=== PATIENT | female | born 1940 | race Caucasian/White ===

== ENCOUNTER 2020-04-30 16:22 | Inpatient (IN) | payer BC ==
[2020-04-29] MEDS: ATORVASTATIN 10 MG TABLET PO SCH (21:00)
[~2020-04-30] VITALS: Ht 170.2 cm; Wt 112.0 kg
[~2020-04-30 16:22] MED LIST: ASCO-340 PO; ASPI-618 PO; Acetaminophen PO; Blood Sugar Diagnostic VI; CLOP75TA15 PO; CLOT15CR36 TOP; DEXT50DI8 IV; Docusate Sodium PO; FAMO20TA8 PO; FLUT1DIS28 IH; FLUT9.9S EA NOSTRIL; FURO-151 PO; HYDR-3326 PO; INSU100I19 SQ; INSU100V28 SQ; LACT1CAP57 PO; LEVO500T2 PO; LINE600T12 PO; LISI-603 PO; LORA0.5T PO; MAGN400O6 PO; MENT71OI TOP; MINE454C11 TOP; MULT-594 PO; Metoprolol Tartrate PO; POTA10CA43 PO; SPIR25TA6 PO; WARF4TAB41 PO; Zolpidem Tartrate PO; [UNRECOGNIZED DRUG - CODE] PO
--- NOTE | 2020-04-30 16:30 | NUR ---
Dr. Meier at bedside for MSE
[2020-04-30 17:03] LABS: BASOPHILS # (AUTO) 0.1 K/uL (0.0-8.0); BASOPHILS % (AUTO) 1.2 % (0.0-2.0); EOSINOPHILS # (AUTO) 0.1 K/uL (0.0-0.7); EOSINOPHILS % (AUTO) 1.6 % (0.0-7.0); HEMATOCRIT 36.6 % (31.2-41.9); HEMOGLOBIN 12.1 g/dL (10.9-14.3); LYMPHOCYTES # (AUTO) 0.9 K/uL (20.0-40.0); LYMPHOCYTES % (AUTO) 10.9 % (20.5-51.5); MEAN CORPUSCULAR HEMOGLOBIN 29.3 uug (24.7-32.8); MEAN CORPUSCULAR HGB CONC 33 g/dL (32.3-35.6); MEAN CORPUSCULAR VOLUME 88.6 fL (75.5-95.3); MONOCYTES # (AUTO) 0.6 K/uL (2.0-10.0); MONOCYTES % (AUTO) 7.5 % (0.0-11.0); NEUTROPHILS # (AUTO) 6.6 K/uL (1.8-8.9); NEUTROPHILS % (AUTO) 78.8 % (38.5-71.5); PLATELET COUNT (AUTO) 278 K/uL (179-408); RED BLOOD CELL COUNT(AUTO) 4.14 MIL/uL (3.63-4.92); WHITE BLOOD COUNT (AUTO) 8.4 K/uL (3.8-11.8)
[2020-04-30 17:10] LABS: CARBON DIOXIDE 30 mmol/L (21-32); CHLORIDE 103 mmol/L (98-107); CREATININE 1.4 mg/dL (0.6-1.3); GLUCOSE 216 mg/dL (74-106); POTASSIUM 3.7 mmol/L (3.5-5.1); UREA NITROGEN, BLOOD 25 mg/dL (7-18)
[2020-04-30 17:16] LABS: ALANINE AMINOTRANSFERASE 19 U/L (14-59); ALKALINE PHOSPHATASE 76 U/L (50-136); ASPARTATE AMINOTRANSFERASE 22 U/L (15-37); BILIRUBIN,DIRECT 0.2 mg/dL (0.0-0.2); BILIRUBIN,TOTAL 0.5 mg/dL (0.2-1.0); TOTAL PROTEIN, SERUM 7.3 g/dL (6.4-8.2)
[2020-04-30] MEDS ORDERED: ASPIRIN 81 MG TAB.CHEW ONE (17:41)
--- NOTE | 2020-04-30 17:43 | NUR ---
US AT BEDSIDE
[2020-04-30] MEDS ORDERED: ASPIRIN 81 MG TAB.CHEW PO ONE (17:45)
[2020-04-30] MEDS ORDERED: CLINDAMYCIN PHOSPHATE IV 900 MG in IV DEXTROSE 5% 100 ML IV ONE (18:15)
[2020-04-30] MEDS ORDERED: AZTREONAM 1 G in IV NORMAL SALINE 50 ML IV ONE (18:15)
[2020-04-30] MEDS ORDERED: AZTREONAM 1 G VIAL ONE (18:17)
[2020-04-30] MEDS ORDERED: CLINDAMYCIN 900MG/D5W 100ML IVPB **ER PYXIS ONLY IJ ONE (18:17)
[2020-04-30] MEDS ORDERED: NITR0.4T48 SL (18:27)
[2020-04-30] MEDS ORDERED: LEVO150T8 PO (18:27)
[2020-04-30] MEDS ORDERED: GLIM2TAB31 PO (18:27)
[2020-04-30] MEDS ORDERED: VALS320T2 PO (18:27)
[2020-04-30] MEDS ORDERED: WARF-68 PO ×2 (18:27)
[2020-04-30] MEDS ORDERED: ATOR10TA PO (18:27)
[2020-04-30] MEDS ORDERED: PANT40TA4 PO (18:27)
[2020-04-30] MEDS ORDERED: HYDR-4384 PO (18:27)
[2020-04-30] MEDS ORDERED: WARF-58 PO (18:27)
[2020-04-30] MEDS ORDERED: CLOP75TA15 PO (18:27)
[2020-04-30] MEDS ORDERED: FURO40TA5 PO (18:27)
[2020-04-30] MEDS ORDERED: CHLO25TA2 PO (18:27)
[2020-04-30] MEDS ORDERED: IV NORMAL SALINE 500 ML BAG IV ONE (18:30)
[2020-04-30] MEDS ORDERED: NITROGLYCERIN 0.4 MG/TAB BOTTLE SL PRN (20:00)
[2020-04-30] MEDS ORDERED: MORPHINE SULFATE 2 MG/1 ML DISP.SYRIN IV PRN (20:00)
[2020-04-30] MEDS ORDERED: ENALAPRILAT DIHYDRATE 1.25 MG/1 ML VIAL IV PRN (20:00)
[2020-04-30] MEDS ORDERED: INSULIN REGULAR, HUMAN 300 UNIT/3 ML VIAL SQ PRN (20:15)
[2020-04-30] MEDS ORDERED: DEXTROSE 50% 50 ML DISP.SYRIN IV PRN (20:15)
--- NOTE | 2020-04-30 21:35 | NUR ---
Admitted a 79 years old female with Diagnosis of Cellulitis and ACS. Patient AAOx4. In no acute distress. Denies any SOB. Some pain on right leg during movement but tolerable per patient. A. fib on tele at 57.min. IV site on right wrist area intact and patent. Both LE with 3+ pitting edema. Right leg swollen and reddened. Needs assessed and attended to. Routine admission care done. Plan of care initiated. Safety measure initiated and call argueta within reached.
[2020-04-30] MEDS ORDERED: TEMAZEPAM 7.5 MG CAPSULE PO PRN (21:45)
[2020-04-30 21:50] VITALS: BP 133/57
[2020-04-30] MEDS: DOCUSATE SODIUM 100 MG CAPSULE PO SCH (22:00)
[2020-04-30] MEDS: ACIDOPHILUS/BULGARICUS CHEW TAB PO SCH (22:01)
[2020-04-30] MEDS: BLOOD SUGAR DIAGNOSTIC 1 EACH STRIP VI SCH (22:17)
[2020-05-01] VITALS: BP 125/58
[2020-05-01] MEDS: ACETAMINOPHEN 325 MG TABLET PO PRN ×2 (00:47→09:01)
[2020-05-01] MEDS ORDERED: CLINDAMYCIN PHOSPHATE 600 MG/4 ML VIAL ONE (00:55)
[2020-05-01] MEDS: CLINDAMYCIN PHOSPHATE IV 600 MG in IV DEXTROSE 5% 100 ML IV SCH ×3 (01:26→17:05)
[2020-05-01 04:00] VITALS: BP 132/64
--- NOTE | 2020-05-01 05:53 | NUR ---
Patient AAOx4. In no acute distress. Denies any SOB. Tylenol 650mg PO PRN per order given for complain of pain on right leg and with help. A. fib on tele at 60/min. IV site on right wrist area intact and patent. No adverse reaction noted from IV ABX. Needs attended to and met. Safety measure maintained and call argueta within reached.
[2020-05-01] MEDS: PANTOPRAZOLE SODIUM 40 MG TABLET.DR PO SCH (06:07)
[2020-05-01] MEDS: BLOOD SUGAR DIAGNOSTIC 1 EACH STRIP VI SCH ×4 (06:33→20:23)
[2020-05-01 06:46] LABS: BASOPHILS % (AUTO) 0.3 % (0.0-2.0); EOSINOPHILS # (AUTO) 0.2 K/uL (0.0-0.7); EOSINOPHILS % (AUTO) 2.6 % (0.0-7.0); HEMATOCRIT 32.2 % (31.2-41.9); HEMOGLOBIN 10.9 g/dL (10.9-14.3); LYMPHOCYTES # (AUTO) 1.4 K/uL (20.0-40.0); LYMPHOCYTES % (AUTO) 18.5 % (20.5-51.5); MEAN CORPUSCULAR HEMOGLOBIN 29.7 uug (24.7-32.8); MEAN CORPUSCULAR HGB CONC 34 g/dL (32.3-35.6); MEAN CORPUSCULAR VOLUME 88.2 fL (75.5-95.3); MONOCYTES # (AUTO) 0.8 K/uL (2.0-10.0); NEUTROPHILS % (AUTO) 67.6 % (38.5-71.5); PLATELET COUNT (AUTO) 235 K/uL (179-408); RED BLOOD CELL COUNT(AUTO) 3.65 MIL/uL (3.63-4.92); WHITE BLOOD COUNT (AUTO) 7.3 K/uL (3.8-11.8)
[2020-05-01] MEDS ORDERED: LEVOTHYROXINE SODIUM 150 MCG TABLET PO SCH (07:00)
[2020-05-01 07:01] LABS: BILIRUBIN,TOTAL 0.4 mg/dL (0.2-1.0); CREATININE 1.3 mg/dL (0.6-1.3); MAGNESIUM 1.9 mg/dL (1.8-2.4); PHOSPHOROUS 3.9 mg/dL (2.5-4.9); POTASSIUM 3.9 mmol/L (3.5-5.1); TOTAL PROTEIN, SERUM 6.5 g/dL (6.4-8.2)
[2020-05-01 07:11] LABS: THYROID STIMULATING HORMONE 0.152 mIU/mL (0.358-3.740)
[2020-05-01] MEDS: GLIMEPIRIDE 2 MG TABLET PO SCH (08:44)
[2020-05-01] MEDS: FUROSEMIDE 40 MG TABLET PO SCH (08:44)
[2020-05-01] MEDS: ACIDOPHILUS/BULGARICUS CHEW TAB PO SCH ×2 (08:44→20:16)
[2020-05-01] MEDS: CLOPIDOGREL 75 MG TABLET PO SCH (08:44)
[2020-05-01] MEDS ORDERED: METOPROLOL SUCCINATE XL 25 MG TAB.SR.24H PO SCH (09:00)
[2020-05-01 12:03] VITALS: BP 126/34
[2020-05-01 12:19] LABS: *BILIRUBIN,URIN NEGATIVE (NEGATIVE); *BLOOD, URINE NEGATIVE (NEGATIVE); *CLARITY,URINE SLIGHTLY CLOUDY (CLEAR); *COLOR,URINE YELLOW (YELLOW); *KETONES,URINE NEGATIVE (NEGATIVE); *UROBILINOGEN,URINE 0.2 E.U./dl (NORMAL); LEUKOCYTE ESTERASE ,URINE 1+ (NEGATIVE); NITRITE, URINE NEGATIVE (NEGATIVE); UGLUCOSE NEGATIVE (NEGATIVE)
[2020-05-01 12:30] LABS: BACTERIA,URINE FEW /HPF (NONE SEEN); SQUAMOUS EPITHELIAL CELL,UR MODERATE /HPF (NONE SEEN)
[2020-05-01 12:31] LABS: MUCUS,URINE MODERATE /LPF (0-FEW)
--- NOTE | 2020-05-01 12:45 | NUR ---
WOUND CARE CONSULT: PT SEEN FOR SKIN ASSESSMENT OF LOWER EXTREMITIES UPON REQUEST OF [employer]. PT NOTED TO HAVE REDNESS TO LOWER LEGS WITH SCARRING TO BILATERAL LATERAL LOWER LEGS AND RT PLANTAR FOOT CALLUS, PRESENT ON ADMISSION. SKIN IS VERY DRY. RECOMMENDATIONS MADE FOR SKIN PROTECTION. DISCUSSED WITH NURSING STAFF. PT STATES WILL SEE HER OWN DPM AFTER DISCHARGE. WILL SEE PRN.
[2020-05-01 16:24] VITALS: BP 110/51
[2020-05-01] MEDS: MINERAL OIL/PETROLATUM,WHITE 57 GM TUBE TOP SCH (16:46)
[2020-05-01] MEDS ORDERED: WARFARIN SODIUM 2 MG TABLET PO SCH (17:00)
--- NOTE | 2020-05-01 19:00 | NUR ---
Patient has been stable throughout the shift. On RA with no distress or SOB complaints. Complained of BLE pain upon movement, Tylenol PRN as ordered given. Wound care nurse visited patient, took pictures of legs and sole of foot. Dr. Ardon also came to check on patient and had a long conversation with patient for her plan of care. Able to ambulate to bathroom with standby assist. Bed locked in lowest position with siderails 2x up. Will endorse to next shift
--- NOTE | 2020-05-01 19:20 | NUR ---
Patient AAOx4. In no acute distress. Denies any pain at this time. No SOB. A. fib on tele at 59/min. IV site on left FA intact and patent. Needs assessed and attended to. Safety measure initiated and call argueta within reached.
[2020-05-01 20:01] VITALS: BP 115/49
[2020-05-01] MEDS: ATORVASTATIN 10 MG TABLET PO SCH (20:16)
[2020-05-01] MEDS: DOCUSATE SODIUM 100 MG CAPSULE PO SCH (20:16)
[2020-05-01] MEDS: CEFAZOLIN 1 G in IV DEXTROSE 5% 50 ML IV SCH (21:18)
[2020-05-02 00:15] VITALS: BP 126/34
[2020-05-02 04:22] VITALS: BP 104/56
[2020-05-02] MEDS: CEFAZOLIN 1 G in IV DEXTROSE 5% 50 ML IV SCH ×3 (05:02→21:39)
[2020-05-02] MEDS: PANTOPRAZOLE SODIUM 40 MG TABLET.DR PO SCH (06:06)
[2020-05-02] MEDS: LEVOTHYROXINE SODIUM 100 MCG TABLET PO SCH (06:07)
--- NOTE | 2020-05-02 06:20 | NUR ---
Patient slept well last night. AOx4. In no acute distress. Denies any pain or SOB. A. fib on tele at 70/min. IV site on left FA intact and patent. No adverse reaction noted from IV ABX. Needs attended to and met. Safety measure maintained and call argueta within reached.
[2020-05-02] MEDS: BLOOD SUGAR DIAGNOSTIC 1 EACH STRIP VI SCH ×2 (06:32→11:42)
[2020-05-02 08:00] VITALS: BP 121/54
[2020-05-02] MEDS: GLIMEPIRIDE 2 MG TABLET PO SCH ×2 (09:00→09:07)
[2020-05-02] MEDS: ACIDOPHILUS/BULGARICUS CHEW TAB PO SCH ×2 (09:07→21:39)
[2020-05-02] MEDS: FUROSEMIDE 40 MG TABLET PO SCH (09:07)
[2020-05-02] MEDS: CLOPIDOGREL 75 MG TABLET PO SCH (09:07)
[2020-05-02] MEDS: MINERAL OIL/PETROLATUM,WHITE 57 GM TUBE TOP SCH (09:21)
[2020-05-02 11:11] VITALS: BP 120/57
[2020-05-02 15:43] VITALS: BP 124/44
[2020-05-02] MEDS ORDERED: WARFARIN SODIUM 5 MG TABLET PO SCH (17:00)
[2020-05-02] MEDS: WARFARIN SODIUM 5 MG TABLET PO SCH (17:23)
[2020-05-02 20:00] VITALS: BP 131/54
[2020-05-02] MEDS: DOCUSATE SODIUM 100 MG CAPSULE PO SCH (21:39)
[2020-05-02] MEDS: ATORVASTATIN 10 MG TABLET PO SCH (21:39)
[2020-05-03] MEDS: ACETAMINOPHEN 325 MG TABLET PO PRN ×2 (01:48→12:06)
[2020-05-03 04:03] VITALS: BP 136/64
[2020-05-03] MEDS: CEFAZOLIN 1 G in IV DEXTROSE 5% 50 ML IV SCH ×3 (05:04→21:04)
[2020-05-03] MEDS: PANTOPRAZOLE SODIUM 40 MG TABLET.DR PO SCH (06:21)
[2020-05-03] MEDS: LEVOTHYROXINE SODIUM 100 MCG TABLET PO SCH (06:29)
[2020-05-03] MEDS: GLIMEPIRIDE 2 MG TABLET PO SCH (08:48)
[2020-05-03] MEDS: MINERAL OIL/PETROLATUM,WHITE 57 GM TUBE TOP SCH (08:48)
[2020-05-03] MEDS: FUROSEMIDE 40 MG TABLET PO SCH (08:48)
[2020-05-03] MEDS: CLOPIDOGREL 75 MG TABLET PO SCH (08:48)
[2020-05-03] MEDS: ACIDOPHILUS/BULGARICUS CHEW TAB PO SCH ×2 (08:48→21:04)
--- NOTE | 2020-05-03 10:30 | NUR ---
took over care from Elisha RN, pt sitting up in w/c, awake alert and oriented, denies of pain at this time, explained plan fo care, verbalized understanding, needs attended, safety measures maintained, call light within reach
[2020-05-03 11:40] VITALS: BP 122/54
--- NOTE | 2020-05-03 12:30 | NUR ---
c/o generalized pains, medicated with Tylenol 650 mg po as ordered.
--- NOTE | 2020-05-03 13:45 | NUR ---
up with PT- see notes
[2020-05-03 15:45] VITALS: BP 112/40
[2020-05-03] MEDS: WARFARIN SODIUM 5 MG TABLET PO SCH (17:29)
--- NOTE | 2020-05-03 18:06 | NUR ---
states was able to take a short nap, dinner served, seen by Dr Contreras, denies of pain at tis time, all needs attended and met, safety measures maintained
[2020-05-03 20:00] VITALS: BP_SYST 131; BP_DIAS 54; BP_DIAS 80
[2020-05-03] MEDS: DOCUSATE SODIUM 100 MG CAPSULE PO SCH (21:04)
[2020-05-03] MEDS: ATORVASTATIN 10 MG TABLET PO SCH (21:04)
[2020-05-04] MEDS: ACETAMINOPHEN 325 MG TABLET PO PRN ×2 (03:40→23:33)
[2020-05-04 04:00] VITALS: BP 153/47
--- NOTE | 2020-05-04 05:47 | NUR ---
No acute events overnight, pt able ambulated with min assist using a walker, c/o of R calf pain, pt medicated for pain with tylenol
[2020-05-04] MEDS: LEVOTHYROXINE SODIUM 100 MCG TABLET PO SCH (06:53)
[2020-05-04] MEDS: CEFAZOLIN 1 G in IV DEXTROSE 5% 50 ML IV SCH ×3 (06:53→21:28)
[2020-05-04] MEDS: PANTOPRAZOLE SODIUM 40 MG TABLET.DR PO SCH (06:53)
[2020-05-04 08:07] LABS: BASOPHILS # (AUTO) 0.1 K/uL (0.0-8.0); BASOPHILS % (AUTO) 0.9 % (0.0-2.0); EOSINOPHILS # (AUTO) 0.3 K/uL (0.0-0.7); EOSINOPHILS % (AUTO) 3.8 % (0.0-7.0); HEMATOCRIT 34.9 % (31.2-41.9); HEMOGLOBIN 11.6 g/dL (10.9-14.3); LYMPHOCYTES # (AUTO) 1.4 K/uL (20.0-40.0); LYMPHOCYTES % (AUTO) 20.8 % (20.5-51.5); MEAN CORPUSCULAR HEMOGLOBIN 29.6 uug (24.7-32.8); MEAN CORPUSCULAR HGB CONC 33 g/dL (32.3-35.6); MONOCYTES # (AUTO) 0.6 K/uL (2.0-10.0); MONOCYTES % (AUTO) 8.9 % (0.0-11.0); NEUTROPHILS # (AUTO) 4.6 K/uL (1.8-8.9); NEUTROPHILS % (AUTO) 65.6 % (38.5-71.5); PLATELET COUNT (AUTO) 292 K/uL (179-408); RED BLOOD CELL COUNT(AUTO) 3.92 MIL/uL (3.63-4.92)
[2020-05-04 08:19] LABS: BILIRUBIN,TOTAL 0.3 mg/dL (0.2-1.0); CREATININE 1.3 mg/dL (0.6-1.3); MAGNESIUM 1.8 mg/dL (1.8-2.4); PHOSPHOROUS 3.3 mg/dL (2.5-4.9); POTASSIUM 3.5 mmol/L (3.5-5.1); TOTAL PROTEIN, SERUM 7.1 g/dL (6.4-8.2)
[2020-05-04] MEDS: ACIDOPHILUS/BULGARICUS CHEW TAB PO SCH ×2 (09:07→20:13)
[2020-05-04] MEDS: GLIMEPIRIDE 2 MG TABLET PO SCH (09:07)
[2020-05-04] MEDS: MINERAL OIL/PETROLATUM,WHITE 57 GM TUBE TOP SCH (09:08)
[2020-05-04] MEDS: FUROSEMIDE 40 MG TABLET PO SCH (09:08)
[2020-05-04] MEDS: CLOPIDOGREL 75 MG TABLET PO SCH (09:08)
[2020-05-04 12:48] VITALS: BP 141/72
[2020-05-04 16:34] VITALS: BP 151/67
[2020-05-04] MEDS: WARFARIN SODIUM 5 MG TABLET PO SCH (17:56)
[2020-05-04 20:12] VITALS: BP 129/52
[2020-05-04] MEDS: ATORVASTATIN 10 MG TABLET PO SCH (20:13)
[2020-05-04] MEDS: DOCUSATE SODIUM 100 MG CAPSULE PO SCH (20:13)
[2020-05-05 04:09] VITALS: BP 132/67
[2020-05-05] MEDS: CEFAZOLIN 1 G in IV DEXTROSE 5% 50 ML IV SCH ×3 (06:05→21:06)
[2020-05-05] MEDS: PANTOPRAZOLE SODIUM 40 MG TABLET.DR PO SCH (06:08)
[2020-05-05] MEDS: LEVOTHYROXINE SODIUM 100 MCG TABLET PO SCH (06:08)
[2020-05-05] MEDS: FUROSEMIDE 40 MG TABLET PO SCH (06:42)
[2020-05-05] MEDS: CLOPIDOGREL 75 MG TABLET PO SCH (08:40)
[2020-05-05] MEDS: GLIMEPIRIDE 2 MG TABLET PO SCH (08:40)
[2020-05-05] MEDS: ACIDOPHILUS/BULGARICUS CHEW TAB PO SCH ×2 (08:40→21:05)
[2020-05-05] MEDS: MINERAL OIL/PETROLATUM,WHITE 57 GM TUBE TOP SCH (08:51)
[2020-05-05 12:00] VITALS: BP 135/62
[2020-05-05 16:42] VITALS: BP 150/42
[2020-05-05] MEDS: WARFARIN SODIUM 5 MG TABLET PO SCH (17:25)
--- NOTE | 2020-05-05 17:31 | NUR ---
Pt received, no acute distress, denies pain, no SOB. Able to make needs known. Pt ambulates steadily with personal walker. Pt received news of the of a close friend, assisted Pt to contact friend with room phone. Pt sitting up in chair for meals. Ice pack applied to right lower leg following ambulation. Call light within reach. All comfort ans safety needs attended to throughout the shift. Will continue to monitor.
--- NOTE | 2020-05-05 19:15 | NUR ---
The patient requested to come back tomorrow morning. She said she is unable to lie down after meal.
--- NOTE | 2020-05-05 19:45 | NUR ---
Received patient awake and alert sitting in chair. Patient shows no signs or symptoms of distress at this time. Bed set to lowest position. Call light within reach. Will continue to monitor patient.
[2020-05-05 20:34] VITALS: BP 125/47
--- NOTE | 2020-05-05 20:45 | NUR ---
Received report from PATRICIA Quispe. Patient awake and alert sitting in chair. Patient denies any acute distress or pain. Patient's vitals are stable. Safety measures in place. Call light within reach. Will continue with the plan of care.
[2020-05-05] MEDS: ATORVASTATIN 10 MG TABLET PO SCH (21:05)
[2020-05-05] MEDS: DOCUSATE SODIUM 100 MG CAPSULE PO SCH (21:06)
[2020-05-06] MEDS: CEFAZOLIN 1 G in IV DEXTROSE 5% 50 ML IV SCH ×3 (05:36→22:49)
[2020-05-06] MEDS: LEVOTHYROXINE SODIUM 100 MCG TABLET PO SCH (06:00)
[2020-05-06] MEDS: PANTOPRAZOLE SODIUM 40 MG TABLET.DR PO SCH (06:01)
[2020-05-06] MEDS: FUROSEMIDE 40 MG TABLET PO SCH ×2 (06:01→06:07)
[2020-05-06 06:13] LABS: BASOPHILS % (AUTO) 0.5 % (0.0-2.0); EOSINOPHILS # (AUTO) 0.2 K/uL (0.0-0.7); HEMATOCRIT 34.5 % (31.2-41.9); HEMOGLOBIN 11.6 g/dL (10.9-14.3); LYMPHOCYTES # (AUTO) 1.2 K/uL (20.0-40.0); LYMPHOCYTES % (AUTO) 17.8 % (20.5-51.5); MEAN CORPUSCULAR HEMOGLOBIN 29.5 uug (24.7-32.8); MEAN CORPUSCULAR HGB CONC 34 g/dL (32.3-35.6); MEAN CORPUSCULAR VOLUME 88.1 fL (75.5-95.3); MONOCYTES # (AUTO) 0.6 K/uL (2.0-10.0); MONOCYTES % (AUTO) 8.6 % (0.0-11.0); NEUTROPHILS # (AUTO) 4.6 K/uL (1.8-8.9); NEUTROPHILS % (AUTO) 70.1 % (38.5-71.5); PLATELET COUNT (AUTO) 293 K/uL (179-408); RED BLOOD CELL COUNT(AUTO) 3.91 MIL/uL (3.63-4.92); WHITE BLOOD COUNT (AUTO) 6.6 K/uL (3.8-11.8)
[2020-05-06 06:25] LABS: CREATININE 1.3 mg/dL (0.6-1.3); MAGNESIUM 1.6 mg/dL (1.8-2.4); PHOSPHOROUS 3.3 mg/dL (2.5-4.9); POTASSIUM 3.3 mmol/L (3.5-5.1)
[2020-05-06 06:34] VITALS: BP 146/59
--- NOTE | 2020-05-06 06:46 | NUR ---
Patient refused lasix med. Per patient, she doesn't want to go all the time. Charge nurse aware.
--- NOTE | 2020-05-06 06:55 | NUR ---
Patient slept intermittently throughout the night. Patient sitting in chair, alert. Patient denies any acute distress or pain. Patient's vitals stable. IV is intact and patent. Comfort care and Needs attended. Safety measures in place. Bed low and locked position. Call light within reach. Will endorse to the oncoming nurse accordingly.
[2020-05-06] MEDS: GLIMEPIRIDE 2 MG TABLET PO SCH (09:20)
[2020-05-06] MEDS: ACIDOPHILUS/BULGARICUS CHEW TAB PO SCH ×2 (09:20→20:22)
[2020-05-06] MEDS: CLOPIDOGREL 75 MG TABLET PO SCH (09:20)
[2020-05-06] MEDS: MINERAL OIL/PETROLATUM,WHITE 57 GM TUBE TOP SCH (09:22)
[2020-05-06] MEDS ORDERED: ALBUTEROL SULFATE 8 GM HFA.AER.AD IH PRN (10:45)
[2020-05-06] MEDS ORDERED: FLUCONAZOLE 100 MG TABLET PO ONE ×2 (10:45→11:30)
[2020-05-06] MEDS ORDERED: ALBUTEROL SULFATE 2.5 MG/3 ML NEBU NEB PRN (11:00)
[2020-05-06] MEDS ORDERED: POTASSIUM CHLORIDE 20 MEQ TAB.PRT.SR PO ONE (11:15)
[2020-05-06] MEDS ORDERED: MAGNESIUM OXIDE 400 MG TABLET PO ONE (11:15)
[2020-05-06 11:58] VITALS: BP 141/66
[2020-05-06 16:24] VITALS: BP_SYST 109; BP_SYST 128; BP_DIAS 40; BP_DIAS 43
[2020-05-06] MEDS: WARFARIN SODIUM 5 MG TABLET PO SCH (17:04)
--- NOTE | 2020-05-06 18:29 | NUR ---
PATIENT CALM COMFORTABLE THROUGH SHIFT WITH NO SIGNS OF DISTRESS;MEDICATION COMPLIANT WITH STABLE VITAL SIGNS.REPORT GIVEN TO ONCOMING NURSE.
--- NOTE | 2020-05-06 20:00 | NUR ---
RECEIVED PATIENT AWAKE, SITTING IN CHAIR AT BEDSIDE. PATIENT IS A/O X4. NO C/O PAIN AT THIS TIME. NO RESP. DISTRESS NOTED. VS WNL. H/L INTACT AND PATENT. CALL LIGHT IN REACH. ALL NEEDS ATTENDED, WILL CONTINUE TO MONITOR AND ASSESS.
[2020-05-06] MEDS: ATORVASTATIN 10 MG TABLET PO SCH (20:22)
[2020-05-06] MEDS: DOCUSATE SODIUM 100 MG CAPSULE PO SCH (20:22)
[2020-05-06 20:36] VITALS: BP 156/57
[2020-05-07] MEDS: ACETAMINOPHEN 325 MG TABLET PO PRN ×2 (04:22→23:32)
[2020-05-07] MEDS: CEFAZOLIN 1 G in IV DEXTROSE 5% 50 ML IV SCH ×3 (06:00→21:45)
[2020-05-07] MEDS: FUROSEMIDE 40 MG TABLET PO SCH (06:16)
[2020-05-07] MEDS: PANTOPRAZOLE SODIUM 40 MG TABLET.DR PO SCH (06:16)
[2020-05-07] MEDS: LEVOTHYROXINE SODIUM 100 MCG TABLET PO SCH (06:16)
[2020-05-07 06:28] LABS: BASOPHILS % (AUTO) 0.6 % (0.0-2.0); EOSINOPHILS # (AUTO) 0.2 K/uL (0.0-0.7); EOSINOPHILS % (AUTO) 3.3 % (0.0-7.0); HEMATOCRIT 32.6 % (31.2-41.9); LYMPHOCYTES % (AUTO) 16.9 % (20.5-51.5); MEAN CORPUSCULAR HEMOGLOBIN 29.9 uug (24.7-32.8); MEAN CORPUSCULAR HGB CONC 34 g/dL (32.3-35.6); MEAN CORPUSCULAR VOLUME 88.8 fL (75.5-95.3); MONOCYTES # (AUTO) 0.5 K/uL (2.0-10.0); MONOCYTES % (AUTO) 9.1 % (0.0-11.0); NEUTROPHILS # (AUTO) 4.2 K/uL (1.8-8.9); NEUTROPHILS % (AUTO) 70.1 % (38.5-71.5); PLATELET COUNT (AUTO) 275 K/uL (179-408); RED BLOOD CELL COUNT(AUTO) 3.67 MIL/uL (3.63-4.92)
[2020-05-07 06:34] VITALS: BP 148/66
[2020-05-07 08:02] LABS: CREATININE 1.2 mg/dL (0.6-1.3); MAGNESIUM 1.9 mg/dL (1.8-2.4); PHOSPHOROUS 2.8 mg/dL (2.5-4.9); POTASSIUM 3.6 mmol/L (3.5-5.1)
[2020-05-07] MEDS: POTASSIUM CHLORIDE 10 MEQ TAB.PRT.SR PO SCH (08:42)
[2020-05-07] MEDS: GLIMEPIRIDE 2 MG TABLET PO SCH (08:42)
[2020-05-07] MEDS: ACIDOPHILUS/BULGARICUS CHEW TAB PO SCH ×2 (08:42→21:45)
[2020-05-07] MEDS: CLOPIDOGREL 75 MG TABLET PO SCH (08:42)
[2020-05-07] MEDS: MINERAL OIL/PETROLATUM,WHITE 57 GM TUBE TOP SCH (08:43)
[2020-05-07 11:30] VITALS: BP 142/48
[2020-05-07 16:00] VITALS: BP 141/53
[2020-05-07] MEDS: WARFARIN SODIUM 5 MG TABLET PO SCH (16:45)
--- NOTE | 2020-05-07 17:15 | NUR ---
PATIENT IS ALERT, ORIENTED X4, NO DISTRESS NOTED, AMBULATORY WITH FWW WITH SUPERVISION, PATIENT CONCERNS ADDRESSED
--- NOTE | 2020-05-07 19:09 | NUR ---
VIVIENNE CHEESE SPECIALIST EXPLAINED TO PATIENT HER RESULTS AND TALKED TO PATIENT IN LENGTH, ANSWERED QUESTIONS, COORDINATE THE CARE. PATIENT IS NEEDY, NEEDS ATTENDED TIMELY, NO DISTRESS NOTED, PATIENT DENIED ANY PAIN DURING SHIFT
[2020-05-07 20:09] VITALS: BP 148/43
[2020-05-07] MEDS: ATORVASTATIN 10 MG TABLET PO SCH ×2 (21:00→21:45)
[2020-05-07] MEDS: MELATONIN 3 MG TABLET PO SCH ×2 (21:45→21:54)
[2020-05-07] MEDS: DOCUSATE SODIUM 100 MG CAPSULE PO SCH (21:45)
--- NOTE | 2020-05-07 21:54 | NUR ---
patient refused her simvastatin at this time despite education Addendum: 05/07/20 at 2204 by HALINA MIKE RN correction: lipitor
[2020-05-08 04:09] VITALS: BP 117/48
--- NOTE | 2020-05-08 05:02 | NUR ---
PATIENT IS AAOX3. V/S STABLE. NO S/S OF ACUTE DISTRESS. WALKED AROUND THE HALLWAY TWICE AT BEGINNING OF SHIFT. C/O OF PAIN AND TYLENOL ADMINISTERED. TOLERATED WELL. SAFETY PRECAUTIONS PROVIDED. MEDICATIONS ADMINISTERED AND 1 REFUSED. WILL CONTINUE TO MONITOR.
[2020-05-08] MEDS: CEFAZOLIN 1 G in IV DEXTROSE 5% 50 ML IV SCH ×2 (05:46→15:00)
[2020-05-08] MEDS: PANTOPRAZOLE SODIUM 40 MG TABLET.DR PO SCH (06:03)
[2020-05-08] MEDS: FUROSEMIDE 40 MG TABLET PO SCH (06:04)
[2020-05-08] MEDS: LEVOTHYROXINE SODIUM 100 MCG TABLET PO SCH (06:04)
[2020-05-08 06:48] LABS: BASOPHILS % (AUTO) 0.7 % (0.0-2.0); CREATININE 1.2 mg/dL (0.6-1.3); EOSINOPHILS # (AUTO) 0.2 K/uL (0.0-0.7); EOSINOPHILS % (AUTO) 3.6 % (0.0-7.0); HEMATOCRIT 31.4 % (31.2-41.9); HEMOGLOBIN 10.6 g/dL (10.9-14.3); LYMPHOCYTES # (AUTO) 1.1 K/uL (20.0-40.0); LYMPHOCYTES % (AUTO) 18.4 % (20.5-51.5); MAGNESIUM 1.8 mg/dL (1.8-2.4); MEAN CORPUSCULAR HEMOGLOBIN 29.9 uug (24.7-32.8); MEAN CORPUSCULAR HGB CONC 34 g/dL (32.3-35.6); MEAN CORPUSCULAR VOLUME 88.4 fL (75.5-95.3); MONOCYTES # (AUTO) 0.6 K/uL (2.0-10.0); MONOCYTES % (AUTO) 10.4 % (0.0-11.0); NEUTROPHILS # (AUTO) 3.8 K/uL (1.8-8.9); NEUTROPHILS % (AUTO) 66.9 % (38.5-71.5); PHOSPHOROUS 3.2 mg/dL (2.5-4.9); PLATELET COUNT (AUTO) 272 K/uL (179-408); POTASSIUM 3.7 mmol/L (3.5-5.1); RED BLOOD CELL COUNT(AUTO) 3.55 MIL/uL (3.63-4.92); WHITE BLOOD COUNT (AUTO) 5.7 K/uL (3.8-11.8)
[2020-05-08 08:00] VITALS: BP 137/43
[2020-05-08] MEDS: GLIMEPIRIDE 2 MG TABLET PO SCH (09:03)
[2020-05-08] MEDS: POTASSIUM CHLORIDE 10 MEQ TAB.PRT.SR PO SCH (09:03)
[2020-05-08] MEDS: ACIDOPHILUS/BULGARICUS CHEW TAB PO SCH (09:03)
[2020-05-08] MEDS: CLOPIDOGREL 75 MG TABLET PO SCH (09:03)
[2020-05-08] MEDS: MINERAL OIL/PETROLATUM,WHITE 57 GM TUBE TOP SCH (09:08)
[2020-05-08] MEDS ORDERED: POTA10CA43 PO (13:02)
[2020-05-08] MEDS ORDERED: LEVO100T10 PO (13:02)
[2020-05-08] MEDS ORDERED: CEPH-570 PO (13:02)
[2020-05-08] MEDS ORDERED: ACID1TAB4 PO (13:02)
[2020-05-08 16:00] VITALS: BP 145/50
[2020-05-08] MEDS: WARFARIN SODIUM 5 MG TABLET PO SCH (16:37)
--- NOTE | 2020-05-08 16:50 | NUR ---
called Neda from [facility], arranged van, around 1800.
--- NOTE | 2020-05-08 17:41 | NUR ---
PATIENT IS BEING DISCHARGED HOME BY [facility], PATIENT IS ALERT, ORIENTED X4, VERBALLY RESPONSIVE, NO SOB,RESP EVEN NONLABORED,SKIN WARM AND DRY TO TOUCH, NO DISTRESS NOTED, DISCHARGE PAPER WORK GIVEN TO PATIENT, INSTRUCTIONS GIVEN, PATIENT VERBALIZED UNDERSTANDING OF IT, PRESCRIPTION GIVEN TO PATIENT, BELONGINGS ACCOUNTED, AND SIGNED, PATIENT OWN MEDICATION FROM PHARMACY GIVEN TO PATIENT, IV REMOVED, ID BAND REMOVED, VOUCHER FOR [facility] GIVEN TO PATIENT, WAITING FOR [facility], PATIENT UNDERSTANDS THE FOLLOW UP WITH HER OWN PRIMARY CARE PHYSICIAN AND WITH VASCULAR DOCTOR, PATIENT HAS THE INFORMATION PROVIDED REGARDING VASCULAR DOCTOR TO FOLLOW UP WITH. Addendum: 05/08/20 at 1852 by ADDIE JERONIMO RN RN PATIENT STATED SHE WOULD LIKE TO EAT DINNER THEN LEAVE. ORDERED [facility] AT 6PM PER PATIENT REQUEST, SPOKE TO ZAHRA FROM [facility]NT[facility]
--- NOTE | 2020-05-08 18:48 | NUR ---
CALLED [facility] AGAIN MULTIPLE TIME, NO RESPONSE, ORDER PLACED AGAIN ONLINE, WAITING FOR [facility] TO PICK P
--- NOTE | 2020-05-08 19:14 | NUR ---
patient discharged home safely transferred to the [facility]
== END 2020-05-09 00:10 | disposition home health service (06) | DRG 871 ==
LOC: ER 16:25 → TELE3 21:24 → MEDSURG3 05-02 09:05
PROVIDERS: ADMIT Internal Medicine; ATTEND Registered Nurse
DX: A41.9 Sepsis, unspecified organism (principal); I21.A1 Myocardial infarction type 2; I50.33 Acute on chronic diastolic (congestive) heart failure; E43 Unspecified severe protein-calorie malnutrition; N17.0 Acute kidney failure with tubular necrosis; L03.115 Cellulitis of right lower limb; E87.2 Acidosis; N39.0 Urinary tract infection, site not specified; I48.20 Chronic atrial fibrillation, unspecified; L03.116 Cellulitis of left lower limb; G89.4 Chronic pain syndrome; E78.5 Hyperlipidemia, unspecified; E11.51 Type 2 diabetes mellitus with diabetic peripheral angiopathy without gangrene; I11.0 Hypertensive heart disease with heart failure; E03.9 Hypothyroidism, unspecified; I25.10 Atherosclerotic heart disease of native coronary artery without angina pectoris; I25.2 Old myocardial infarction; Z86.73 Personal history of transient ischemic attack (TIA), and cerebral infarction without residual deficits; Z88.0 Allergy status to penicillin; Z79.01 Long term (current) use of anticoagulants; Z79.4 Long term (current) use of insulin; Z85.51 Personal history of malignant neoplasm of bladder; E11.65 Type 2 diabetes mellitus with hyperglycemia; E66.01 Morbid (severe) obesity due to excess calories; Z68.38 Body mass index [BMI] 38.0-38.9, adult; I89.0 Lymphedema, not elsewhere classified; M17.11 Unilateral primary osteoarthritis, right knee; Z88.1 Allergy status to other antibiotic agents; Z95.5 Presence of coronary angioplasty implant and graft; B37.3 Candidiasis of vulva and vagina; I27.20 Pulmonary hypertension, unspecified; J45.909 Unspecified asthma, uncomplicated; I73.9 Peripheral vascular disease, unspecified; K59.00 Constipation, unspecified; I08.0 Rheumatic disorders of both mitral and aortic valves; M85.80 Other specified disorders of bone density and structure, unspecified site
CPT/HCPCS: 36415; 70030-TC; 71045; 73560; 83605; 83735; 84100; 84443; 85025; 85610; 85651; 85730; 87040; 87086; 93005; 93307; A4663; G0378; J0690; J1815; J3490; J7040; J7050; J7060